=== PATIENT | female | born 1970 | race Caucasian/White ===

== ENCOUNTER → 2018-06-01 16:25 | Outpatient (CLI) | payer BC ==
[2011-04-25 06:15] VITALS: BMI 35.9
[~2018-06-01 16:25] MED LIST: FORTAMET1000 MG/BO PO; GLUCOSAMINE HC500 MG PO; HYDROCHLOROTHIA25 MG PO; HYDROCODON-ACE1 EAC7 PO; JANUVIA100 MG PO; LEVAQUIN500 MG PO; MAGNESIUM OXID250 MG PO; MULTIPLE VITAMI1 TA1 PO; OMEPRAZOLE20 M1 PO; POTASSIUM99 M1 PO; SYNTHROID100 MCG PO; TUCKS MEDICATE1 EACH TOPICAL; VALIUM10 MG PO; VALTREX1000 MG PO; ZYLOPRIM300 MG PO; ZYRTEC10 MG PO
[2018-06-01 16:49] LABS: BASOPHILS 0.2 % (0-2); EOSINOPHILS 3.5 % (0-7); HEMATOCRIT 37.9 % (36.0-48.0); HEMOGLOBIN 13.1 g/dL (12-16); IMMATURE GRANULOCYTES 0.3 % (0-5); LYMPHOCYTES 31.1 % (15-50); MCH 32.9 pg (26.0-34.0); MCHC 34.6 g/dL (31.0-37.0); MCV 95.2 fL (80.0-100.0); MEAN PLATELET VOLUME 9.7 fL (7.4-10.4); NEUTROPHILS 59.9 % (40-80); PLATELET COUNT 287 10x3/uL (130-400); RBC 3.98 10x6/uL (4.00-5.40); RDW 14.3 % (11.5-14.5); WBC 10.7 10x3/uL (4.8-10.8)
[2018-06-01 17:21] LABS: ANION GAP 12.7 mmol/L (8-16); CALCIUM 8.4 mg/dL (8.5-10.1); CREATININE - SERUM 1.5 mg/dL (0.6-1.3); POTASSIUM - SERUM 3.7 mmol/L (3.5-5.1)
[2018-06-03 11:54] VITALS: BMI 33.4
== END | disposition home or self-care (01) ==
LOC: D.LAB 16:15 → D.CT 16:30
PROVIDERS: Nurse Practitioner Family
DX: K61.1 Rectal abscess (principal)

== ENCOUNTER 2018-06-03 08:41 | Day surgery (SDC) | payer BC ==
[~2018-06-03] VITALS: Ht 167.6 cm; Wt 93.9 kg
--- NOTE | ~2018-06-03 | OP ---
PATIENT NAME: MARCUS RAYO MEDICAL RECORD: [id number] :70 LOCATION:D.OPS ADMISSION DATE: SURGEON: PETER FERNANDO MD DATE OF OPERATION: 06/03/2018 SURGEON: Peter Fernando MD PREOPERATIVE DIAGNOSIS: Perirectal abscess. POSTOPERATIVE DIAGNOSIS: Perirectal abscess. PROCEDURES PERFORMED: 1. Rectal exam under anesthesia. 2. Incision and drainage of left perirectal abscess. ANESTHESIA: General. SPECIMENS: Fluid culture. Case was grossly contaminated. ESTIMATED BLOOD LOSS: Minimal. OPERATIVE COURSE: After consent was obtained, the patient was taken to the operating room and placed in supine position on the operating table. Next, general anesthesia was given. Thereafter, a timeout was taken to confirm the correct patient and procedure. The patient was then placed into the lithotomy position. The perineum was prepped and draped in typical sterile fashion. A 30 cc of local anesthetic were injected in a perineal block. Digital rectal examination was performed. There was a significant amount of indurated tissue in the left perirectal region. There was no active fistula communication. The rectum was sterilely dilated using the Joseph-Hill retractors. Next, the area of indurated tissue was incised using a 15 blade scalpel. The skin was excised in an elliptical fashion. A 20 cc of purulent material were expressed. Fluid cultures were obtained and sent for culture and sensitivity. The perirectal abscess was bluntly dissected using finger dissection until all loculations were opened. The wound was then copiously irrigated with sterile saline. Hemostasis with electrocautery. The wound was then packed with Kerlix gauze soaked in Betadine and hydrogen peroxide. At the end of the case, all needle and instrument counts were correct. No complications occurred. The patient was extubated and transferred to the PACU in stable condition. 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
[2018-06-03 11:28] LABS: BASOPHILS 0.5 % (0-2); EOSINOPHILS 6.1 % (0-7); HEMATOCRIT 37.9 % (36.0-48.0); HEMOGLOBIN 12.6 g/dL (12-16); IMMATURE GRANULOCYTES 0.3 % (0-5); LYMPHOCYTES 33.4 % (15-50); MCHC 33.2 g/dL (31.0-37.0); MCV 96.2 fL (80.0-100.0); MEAN PLATELET VOLUME 9.7 fL (7.4-10.4); MONOCYTES 6.1 % (2-11); NEUTROPHILS 53.6 % (40-80); PLATELET COUNT 311 10x3/uL (130-400); RBC 3.94 10x6/uL (4.00-5.40); RDW 14.2 % (11.5-14.5); WBC 8.9 10x3/uL (4.8-10.8)
[2018-06-03] MEDS ORDERED: MULTIPLE VITAMI1 TA1 PO (11:32)
[2018-06-03] MEDS ORDERED: FORTAMET1000 MG/BO PO (11:33)
[2018-06-03] MEDS ORDERED: JANUVIA100 MG PO (11:33)
[2018-06-03] MEDS ORDERED: HYDROCHLOROTHIA25 MG PO (11:34)
[2018-06-03] MEDS ORDERED: ZYLOPRIM300 MG PO (11:34)
[2018-06-03] MEDS ORDERED: SYNTHROID100 MCG PO (11:35)
[2018-06-03] MEDS ORDERED: ZYRTEC10 MG PO (11:36)
[2018-06-03] MEDS ORDERED: OMEPRAZOLE20 M1 PO (11:36)
[2018-06-03] MEDS ORDERED: GLUCOSAMINE HC500 MG PO (11:37)
[2018-06-03] MEDS ORDERED: POTASSIUM99 M1 PO (11:38)
[2018-06-03] MEDS ORDERED: MAGNESIUM OXID250 MG PO (11:38)
[2018-06-03] MEDS ORDERED: VALIUM10 MG PO (11:39)
[2018-06-03] MEDS ORDERED: VALTREX1000 MG PO (11:39)
[2018-06-03] MEDS ORDERED: LEVAQUIN500 MG PO (11:40)
[2018-06-03 11:54] VITALS: BP 108/66; Ht 167.6 cm; Wt 93.9 kg
[2018-06-03 12:14] LABS: HCG URINE NEGATIVE (NEGATIVE)
[2018-06-03] MEDS ORDERED: HYDROCODON-ACE1 EAC7 PO (13:08)
[2018-06-03] MEDS ORDERED: TUCKS MEDICATE1 EACH TOPICAL (13:10)
[2018-06-10 19:12] LABS: AEROBE ID Final report (())
== END 2018-06-03 16:00 | disposition home or self-care (01) ==
LOC: D.OPS 08:41 → D.PAN 10:45 → D.OPS 16:00
PROVIDERS: Anesthesiology; Surgery
DX: K61.1 Rectal abscess (principal); Z01.812 Encounter for preprocedural laboratory examination

== ENCOUNTER 2018-07-15 06:33 | Day surgery (SDC) | payer BC ==
[~2018-07-15] VITALS: Ht 167.6 cm; Wt 94.3 kg
--- NOTE | ~2018-07-15 | OP ---
PATIENT NAME: MARCUS RAYO MEDICAL RECORD: [id number] :70 LOCATION:D.OPS ADMISSION DATE: SURGEON: PETER FERNANDO MD DATE OF OPERATION: 07/15/2018 SURGEON: Peter Fernando MD PREOPERATIVE DIAGNOSES: 1. History of perirectal abscess. 2. Anorectal fistula. POSTOPERATIVE DIAGNOSES: 1. History of perirectal abscess. 2. Anorectal fistula. PROCEDURES PERFORMED: Rectal examination under anesthesia. COMPLICATIONS: None. SPECIMENS: None. Case was contaminated. ESTIMATED BLOOD LOSS: 10 cc. OPERATIVE COURSE: After consent was obtained, the patient was taken to the operating room and placed in the supine position on the operating table. Next, general anesthesia was given. A timeout was taken to confirm the correct patient and procedure. The patient was then placed in the lithotomy position. The perineum was prepped and draped in typical sterile fashion. A 30 cc of local anesthetic were injected circumferentially for a perineal block. Digital rectal exam was performed. The previous incision and drainage site of the left-sided perirectal abscess was well healed and there was no persistent open or draining sinus tract noted externally. Digital rectal exam, no masses were identified. The rectum was then serially dilated using the Joseph-Hill retractors. An extensive rectal exam was performed. There were no open draining sinus tracts identified within the rectum. There was some small grade I internal hemorrhoids. At this time, as no fistulas were identified or the fistula was well healed, it was decided to terminate the procedure. The rectum was packed with Gelfoam and Americaine. At the end of the case, all needle and instrument counts were correct. No complications occurred. The patient was extubated and transferred to the PACU in stable condition. TRANSINT:[id number] Voice Confirmation ID: [id number] DOCUMENT ID: [id number] PETER FERNANOD MD at 1200 CC: [id number] DICTATION DATE: 07/15/18 1119 PROPOSAL WRITER: 07/15/18 1132 [facility] [address] [place] [address]
[2018-07-15] MEDS ORDERED: KLOR-CON/EF 2525 MEQ PO (07:42)
[2018-07-15 07:43] VITALS: BP 109/70; Ht 167.6 cm; Wt 94.3 kg
== END 2018-07-15 13:35 | disposition home or self-care (01) ==
LOC: D.OPS 06:33 → D.PAN 08:40 → D.OPS 09:30 → D.PAN 09:30 → D.OPS 13:35
DX: K64.0 First degree hemorrhoids (principal); Z01.812 Encounter for preprocedural laboratory examination

== ENCOUNTER 2019-04-30 08:00 | Outpatient (CLI) | payer BC ==
[2018-07-15 07:43] VITALS: BMI 33.6
[~2019-04-30 08:00] MED LIST changes: +KLOR-CON/EF 2525 MEQ PO
== END 2019-04-30 23:59 | disposition home or self-care (01) ==
LOC: D.MAMMO 08:00
PROVIDERS: ATTEND Emergency Medicine
DX: Z12.31 Encounter for screening mammogram for malignant neoplasm of breast (principal)